=== PATIENT | female | born 1945 | race Caucasian/White ===

== ENCOUNTER 2016-09-01 12:02 | Outpatient (CLI) | payer OTHER ==
--- NOTE | 2016-09-01 17:14 | DIAGNOSTIC IMAGING REPORT ---
REFERRING PHYSICIAN/PROVIDER: Dr. Vigil CONSULTING DIE SINKING MACHINE OPERATOR: Gorge Ruiz MD PROCEDURE: 2D echo, M-mode and complete color and flow Doppler interrogation TECHNICAL QUALITY: Good INDICATION: CARDIAC MURMUR INTERPRETATIONS: CHAMBERS: LEFT ATRIUM: Severe left atrial enlargement. LEFT VENTRICLE: Normal left ventricular size, thickness, and systolic function, EF 57%. No wall motion abnormalities. RIGHT ATRIUM: Normal right atrial size. RIGHT VENTRICLE: Normal right ventricular size and systolic function. VALVES: All valves nonrheumatic unless otherwise indicated. AORTIC VALVE: Trileaflet aortic valve with mild aortic regurgitation. No aortic stenosis. MITRAL VALVE: Normal mitral leaflet appearance. Mild-moderate mitral regurgitation. No mitral stenosis, with mean gradient 1.1 mmHg, MVC by PHT 2.78 cm2. TRICUSPID VALVE: Mild tricuspid regurgitation. RVSP 36 mmHg. PULMONIC VALVE: Trace pulmonic regurgitation. MISCELLANEOUS: No pericardial effusion. Ascending aorta dilation measuring 3.9 cm in maximal dimension in the tubular portion. This area is not seen well on the echocardiogram images. HEMODYNAMICS: Normal size IVC with >50% inspiratory collapse. CVP 3 mmHg. IMPRESSION: 1. Normal left ventricular size and systolic function, EF 57%. No wall motion abnormalities. 2. Dilated ascending aorta measuring 3.9 cm in maximal dimension, in a poorly visualized segment of the ascending aorta. Recommend dedicated CT for more definitive evaluation. 3. Mild aortic regurgitation. 4. Mild-moderate mitral regurgitation into a severely dilated left atrium. 5. Mild tricuspid regurgitation. 6. Normal right ventricular size and systolic function. 7. Estimated pulmonary artery systolic pressure is 36 mmHg.
== END 2016-09-01 23:00 | disposition home or self-care (01) ==
LOC: US SRH 12:02
DX: I77.810 Thoracic aortic ectasia (principal); I08.3 Combined rheumatic disorders of mitral, aortic and tricuspid valves

== ENCOUNTER 2016-09-09 11:11 | Outpatient (CLI) | payer OTHER ==
--- NOTE | 2016-09-09 13:06 | DIAGNOSTIC IMAGING REPORT ---
PROCEDURE: CTA THORAX WITH CONTRAST INDICATION: THORACIC ANYRUISM WITH OUT RUPTURE TECHNIQUE: 125 ml of Isovue 370 was injected intravenously and axial images were obtained of the entire thorax with 3D sagittal and coronal MIP reconstructions. COMPARISON: None. FINDINGS: Ascending aorta measures 3.7 cm. Minor atherosclerosis of the distal thoracic aorta with some tortuosity. There is no aneurysm or dissection normal. Normal take off of the great vessels, celiac trunk, SMA and renal arteries without calcific atherosclerosis. Normal pulmonary arteries. No coronary calcific atherosclerosis. Mild cardiomegaly. Mild dependent atelectasis in both lung bases. Mild left pleural thickening posteriorly. No adenopathy. Severe right shoulder and thoracic spine degenerative changes. Left renal cyst. IMPRESSION: 1. Minor atherosclerosis and tortuosity of the aorta. No aneurysm or dissection. 2. Mild cardiomegaly
== END 2016-09-09 23:00 ==
LOC: CT SRH 11:11
DX: I70.0 Atherosclerosis of aorta (principal); I51.7 Cardiomegaly